=== PATIENT | female | born 1945 | race Caucasian/White ===

== ENCOUNTER → 2023-07-19 11:42 | Outpatient (REF) | payer MEDICARE, OTHER, SELFPAY ==
[2023-07-19 13:03] LABS: HDL Cholesterol 37 mg/dl; LDL Cholesterol, Calculated 44 mg/dl; Total Cholesterol 101 mg/dl (50-199); Triglyceride 100 mg/dl (10-149); Very Low Density Lipoprotein 20 mg/dl (0-30)
== END ==
LOC: OLABN 11:42
PROVIDERS: ATTENDING PHYSICIAN Student in an Organized Health Care Education/Training Program
DX: E78.5 Hyperlipidemia, unspecified (principal)
CPT/HCPCS: 36415; 80061

== ENCOUNTER → 2023-10-30 10:10 | Outpatient (REF) | payer MEDICARE, OTHER, SELFPAY ==
[2023-10-30 12:20] LABS: ALT (SGPT) < 10 U/L (0-35); AST (SGOT) 19 U/L (14-36); Albumin 3.6 g/dl (3.5-5.0); Alkaline Phosphatase 64 U/L (38-126); Blood Urea Nitrogen 22 mg/dl (7-17); Calcium 9.6 mg/dl (8.4-10.2); Carbon Dioxide 26 mmol/L (22-30); Chloride 106 mmol/L (98-107); Glucose 86 mg/dl (70-99); Potassium 5.1 mmol/L (3.5-5.1); Sodium 139 mmol/L (135-145); Total Bilirubin 0.5 mg/dl (0.2-1.3); eGFR > 60.00
[2023-10-30 12:24] LABS: Depakane < 10.0 ug/ml (50.0-120.0)
== END ==
LOC: OLABN 10:10
PROVIDERS: ATTENDING PHYSICIAN Student in an Organized Health Care Education/Training Program
DX: Z51.81 Encounter for therapeutic drug level monitoring (principal)
CPT/HCPCS: 36415; 80053; 80164

== ENCOUNTER → 2024-05-06 12:38 | Outpatient (REF) | payer MEDICARE, OTHER, SELFPAY ==
[2024-05-06 13:59] LABS: Depakane 16.8 ug/ml (50.0-120.0)
== END ==
LOC: OLABN 12:38
PROVIDERS: ATTENDING PHYSICIAN Student in an Organized Health Care Education/Training Program
DX: Z51.81 Encounter for therapeutic drug level monitoring (principal)
CPT/HCPCS: 36415; 80164

== ENCOUNTER → 2024-11-04 10:42 | Outpatient (REF) | payer MEDICARE, OTHER, SELFPAY ==
[2024-11-04 11:52] LABS: Depakane < 10.0 ug/ml (50.0-120.0)
[2024-11-04 11:59] LABS: ALT (SGPT) < 10 U/L (0-35); AST (SGOT) 18 U/L (14-36); Albumin 3.6 g/dl (3.5-5.0); Alkaline Phosphatase 50 U/L (38-126); Blood Urea Nitrogen 14 mg/dl (7-17); Calcium 9.6 mg/dl (8.4-10.2); Carbon Dioxide 24 mmol/L (22-30); Chloride 108 mmol/L (98-107); Glucose 96 mg/dl (70-99); HDL Cholesterol 38 mg/dl; LDL Cholesterol, Calculated 64 mg/dl; Potassium 4.4 mmol/L (3.5-5.1); Sodium 137 mmol/L (135-145); Total Protein 5.8 g/dl (6.3-8.2); Very Low Density Lipoprotein 26 mg/dl (0-30); eGFR > 60.00
== END ==
LOC: OLABN 10:42
PROVIDERS: ATTENDING PHYSICIAN Student in an Organized Health Care Education/Training Program
DX: E78.5 Hyperlipidemia, unspecified (principal); Z51.81 Encounter for therapeutic drug level monitoring
CPT/HCPCS: 36415; 80053; 80061; 80164

== ENCOUNTER 2024-11-08 00:31 | Inpatient (IN) | payer MEDICARE, OTHER, SELFPAY ==
[2024-11-07 21:57] VITALS: BP 114/76
[2024-11-07] MEDS: ZOFRAN 4 MG IV (22:28)
[2024-11-07] MEDS: MORPHINE SULFATE 4 MG IV (22:28)
[2024-11-07 22:34] LABS: Hematocrit 41.9 % (37.0-47.0); Hemoglobin 14.1 g/dL (12.0-16.0); Mean Corp Hgb Conc. 33.7 g/dL (33.0-37.0); Mean Corpuscular Volume 86.9 fL (81.0-99.0); Nucleated Red Blood Cells % 0 %; Platelet Count 212 10^3/uL (130-400); Red Cell Dist. Width 12.9 % (11.5-14.5)
[2024-11-07 22:53] LABS: Blood Urea Nitrogen 19 mg/dl (7-17); Calcium 10.0 mg/dl (8.4-10.2); Carbon Dioxide 24 mmol/L (22-30); Chloride 104 mmol/L (98-107); Estimated Creatinine Clearance 61 ml/min; Glucose 139 mg/dl (70-99); Sodium 135 mmol/L (135-145); eGFR > 60.00
[2024-11-07 23:16] VITALS: BP 100/68
--- NOTE | 2024-11-07 23:37 | ED.MUSCINJ ---
HPI-Injury
General
Chief Complaint: Musculo-Skeletal Complaint
Source: family (daughter)
Exam Limitations: none
Time Seen by Provider: 11/07/24 22:03
Nursing documentation reviewed up to this point in time: agreed with
History of Present Illness-Injury
Is this injury a work related problem?: No
Is pt an associate of [facility]/[place]?: No
Initial Injury comments:
Daughter states patient was left alone in shower area and when staff returned she was found on the floor. Patient with swelling to mid thigh, pain to thigh and knee. Brought to ED via EMS for eval
Past History
Past History
ED Past Medical History: Arrthythmia, HTN and Other (Mild dementia)
ED Past Surgical History: Cholecystectomy, and Orthopedic
Social History
Tobacco: Non-smoker
Personal:
Living: with family
Employment: Retired
Review of Systems
Review of Systems
Allergies reviewed?: Yes
All Other Systems: ROS reviewed and negative except as documented in HPI and ROS
Constitutional: Reports no symptoms
EENT: Reports no symptoms
Respiratory: Reports no symptoms
Cardiac: Reports no symptoms
ABD/GI: Reports no symptoms
: Reports no symptoms
Musculoskeletal: Reports joint pain (pain to left thigh, knee)
Skin: Reports no symptoms
Neurological: Reports no symptoms
Psychiatric: Reports no symptoms
Musculoskeletal Injury Exam
Musculoskeletal Injury Exam
Left Thigh:
Pain with Movement?: Moderate
Tender to palpation?: Moderate
Soft tissue swelling?: Moderate
External deformity and angulation?: None
Joint effusion?: None
Contusion?: Moderate
Hematoma-local bleeding into tissue?: Moderate
Strain- Sprain- Tear (Connective tissue injury)?: Moderate
Crepitus with movement?: No
Joint instability?: No
Malalignment/deformity?: No
Range of motion: Limited
Distal skin color and temperature: normal-warm & good color
Capillary Refill: normal
Normal distal neurovascular exam?: Yes
Peripheral Pulses: posterior tibial (left): 3+ and dorsalis pedis (left): 3+
Left Knee:
Pain with Movement?: Moderate
Tender to palpation?: Moderate
Soft tissue swelling?: Moderate
External deformity and angulation?: None
Joint effusion?: None
Contusion?: Moderate
Hematoma-local bleeding into tissue?: None
Strain- Sprain- Tear (Connective tissue injury)?: Moderate
Crepitus with movement?: No
Joint instability?: No
Malalignment/deformity?: No
Range of motion: Limited
Distal skin color and temperature: normal-warm & good color
Capillary Refill: normal
Normal distal neurovascular exam?: Yes
Phy Exam
General Physical Exam
General Presentation: moderate distress
General age: appears stated age
General Skin: warm and dry
General Habitus: debilitated and elderly
General Mental: confused and usual mental status
General Hydration: appears well hydrated
Pulmonary Exam
Pulmonary Exam: no respiratory distress and chest non tender
Gastrointestinal Exam
Gastrointestinal Exam: non tender and soft
Musculoskeletal Exam
Musculoskeletal Exam: neuro vasc intact
Skin Exam
Skin Exam: normal color, warm/dry and no rash
Psychiatric Exam
Psychiatric Exam: normal mood/affect
Injury Course
Orders/Labs/Results
Orders:
Orders
11/07/24 22:17
Femur, Left 2 View [CR Femur - Left Min 2 Vw] Urgent
Comment:
Reason For Exam: fall
Tib/Fib, Left 2 View [CR Leg Tibia/fibula Left 2 Vw] Urgent
Comment:
Reason For Exam: fall
11/07/24 22:18
CT Head W/o Iv Contrast Urgent
Comment:
Reason For Exam: fall
Morphine Sulfate 4 mg IV NOW STA
Ondansetron Injectable [Zofran] 4 mg IV NOW STA
11/07/24 22:27
Basic Metabolic Panel Urgent
Complete Blood Count/With Diff Urgent
11/07/24 22:37
Urinalysis Reflex To Culture Urgent
11/07/24 23:15
Lactic Acid Urgent
11/07/24 23:30
Knee, Left 4 or More Views [CR Knee - Left 4 Or More View*] Urgent
Comment:
Reason For Exam: trauma
Abnormal Lab Results
11/07/24
22:27
WBC 17.0 H 10^3/uL
(4.8-10.8)
Abs Immat Gran (auto) 0.1 H 10^3/uL
(0-0.05)
Absolute Neuts (auto) 14.7 H 10^3/uL
(1.4-6.5)
Absolute Monos (auto) 0.9 H 10^3/uL
(0.1-0.6)
Neutrophils % 86.4 H %
(42.2-75.2)
Lymphocytes % 7.4 L %
(20.5-51.1)
BUN 19 H mg/dl
(7-17)
Glucose 139 H mg/dl
(70-99)
11/07/24 22:27
11/07/24 22:27
*Pulse Oximetry
SaO2: 93
Nasal Cannula flow liters per minute: 3
Oxygen Mode of Delivery: Room air
Patient hypoxic: no
*Critical Care Note
Total Time (30-74mins, 75-104mins- exclusive of procedures): Not Applicable
Update Note
Update Note:
Patient to ED from [facility]. Unwitnessed fall. Patient with pain and swellng to left thigh Xray confirms left distal femur fx. WIll admit to hospitalist aleksandra. Consult sent to Dr. Pena.
ED Attending Note
-
Portions of this chart may have been created with voice recognition software.� Occasional wrong word or��sound alike� substitutions may have occurred due to the inherent limitations of voice recognition software.
Discharge Plan
Departure
Patient Disposition: Admit
Date of Disposition: 11/07/24
Time of Disposition: 23:46
Presentation/result/management discussed w/ accepting MD/DO: Hospitalist
Patient with high blood pressure during this ER visit?: No
Condition: Fair
Covid-19: Not Applicable
Discharge Problem:
Fracture of distal end of femur
Prescriptions:
No Action
diltiazem HCl 240 MG capsule,extended release 24hr
240 mg PO DAILY
simvastatin 10 MG tablet
10 mg PO QPM
cyanocobalamin (vitamin B-12) 1,000 MCG tablet
1,000 mcg PO DAILY
fosinopril [Monopril] 20 MG tablet
20 mg PO DAILY
aspirin 81 MG tablet,delayed release (DR/EC)
81 mg PO DAILY
pantoprazole 40 MG tablet,delayed release (DR/EC)
40 mg PO DAILY
calcium polycarbophil [Fiber-Tabs] 625 MG tablet
625 mg PO QPM
docusate sodium 100 MG capsule
100 mg PO BID
montelukast 10 MG tablet
10 mg PO DAILY
calcium carbonate-vitamin D3 [Oyster Shell Calcium-Vit D3] 500 MG tablet
1 tab PO BID
glucosamine HCl 1,500 MG tablet
1,500 mg PO BID
rivaroxaban [Xarelto] 20 MG tablet
20 mg PO QPM
multivitamin with folic acid [Tab-A-Tayler] 1 TABLET tablet
1 tab PO DAILY
Referrals:
Byron Silva DO [Family Provider, Family Practice]
Interventions
Interventions:
*Risk Screen - Suicide Last Done: 11/07/24 21:57
*General Assessment Last Done: 11/07/24 21:57
*Neglect/Abuse Screening Last Done: 11/07/24 21:57
*ED- Fall Risk Assessment Last Done: 11/07/24 21:57
*ED COVID-19 Vaccine History Last Done: 11/07/24 21:57
ED-Musculoskeletal Assessment Last Done: 11/07/24 23:21
Discharge Date and Time
Print Language: FAROESE
--- NOTE | 2024-11-07 23:54 | HPS.HSE ---
Family Physician
-
Family Physician: Byron Silva DO
Chief Complaint
-
Fall and injury
History of Present Illness
This is a 79-year-old female with past medical history significant for atrial fibrillation on anticoagulation with Xarelto, hyperlipidemia, and hypertension who presents to the emergency department following unwitnessed fall at home.
According to the daughter, patient was alone in the shower when staff returned to find her on the floor. She was found on the floor with swelling to the mid thigh and pain to the thigh and knee. And brought to the Emergency Department for
evaluation. Patient is nonverbal and cannot provide any history. According to daughter she has never had a syncopal episode. She has dementia and family thought she might of had a stroke in the past but could not confirm.
In the emergency department blood pressure was 100 over 60s with a pulse of 97 and was satting 93% on room air. Temperature was 98.2.
She had white count of 17 but otherwise CBC was unremarkable. Electrolytes were stable with potassium pending. Pain and creatinine were 19 and 0.7 with a glucose of 139.
X-ray shows a left distal femur fracture. CT head with no acute intracranial abnormality noted. No acute intracranial hemorrhage. No extra-axial collection.
Medical History
Past Medical History
Past Medical History: Reports Arrhythmia (Atrial fibrillation) and HTN
Past Surgical History: Reports Cholecystectomy, and Orthopedic (Left total knee arthroplasty)
Social History
Tobacco: Non-smoker
Alcohol: None
Drug: None
Living: Assisted Living
Family History
Family History: Not pertinent
Allergies / Home Medications
Allergies reflects when Allergies were last updated in [employer].
Home Medications with original date entered in [employer]
Allergy/Medication List:
Allergies
Allergy/AdvReac Type Severity Reaction Status Date / Time
Penicillins Allergy Unknown Verified 11/07/24 21:56
Home Medications
Lisinopril 20 MG Oral for 30 Days Active
Montelukast Sodium 10 MG Oral for 30 Days Active
Gabapentin 100 MG Oral for 30 Days Active
dilTIAZem HCl ER Coated Beads 240 MG Oral for 30 Days Active
Bacitracin 500 UNIT/GM Ophthalmic for 7 Days Active
LORazepam 0.5 MG Oral for 14 Days Active
Xarelto 20 MG Oral for 14 Days Active
Simvastatin 10 MG Oral for 30 Days Active
Sertraline HCl 100 MG Oral for 30 Days Active
Review of Systems
-
Unable to obtain full review of systems at this time due to: Patient Non-verbal
Physical Exam
Vital Signs
Vital Signs
Temp Pulse Resp BP Pulse Ox
98.2 F 97 18 100/68 93
11/07/24 23:16 11/07/24 23:16 11/07/24 23:16 11/07/24 23:16 11/07/24 23:38
Physical Exam
General: Well Developed and Pain
HEENT: NormoCephalic, Moist mucous membranes, Atraumatic and Oxygen
Respiratory: Clear
Cardiac: S1/S2 and Regular Rhythm; No Murmur or Rub
GI: Soft, Non Tender, Non Distended and Normal Bowel Sounds; No Organomegaly
Rectal: Deferred by Provider
Musculoskeletal: No Clubbing, No Cyanosis and No Edema
Skin: No Rash
Neuro: Awake and Nonfocal/grossly intact; No Facial Droop
Laboratory Results
-
11/07/24 22:27
11/07/24 22:27
Laboratory Results
Lactic Acid 2.0 mmol/L (0.7-2.0) 11/07/24 23:15
Total Bilirubin Cancelled 11/07/24 22:27
AST Cancelled 11/07/24 22:27
ALT Cancelled 11/07/24 22:27
Alkaline Phosphatase Cancelled 11/07/24 22:27
Data Reviewed
-
Diagnostic Radiology: Image Personally Visualized and interpreted
CT Scan: Report Reviewed by me
Lab Data: Labs Reviewed by me
Old Records: Reviewed
Impression/Plan
-
IMPRESSION:
This is a 79-year-old female with past medical history of dementia, atrial fibrillation on Xarelto, hypertension, she is not mobile and nonverbal at baseline presents to the emergency department after suffering a fall at the alf. She
apparently was seated on shower chair and left for a few minutes when staff returned and found her on the floor wincing in pain. She was really brought to the emergency department. She had no weakness loss of consciousness. In the ED found to
have a left distal femur fracture. 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 Labs notable for leukocytosis to 17 otherwise unremarkable. She is on 2 L of oxygen which she does not use at baseline.
PLAN:
Distal Femur fracture -closed, minimally displaced distal femur fracture.
-Admit to MedSurg
-Hold anticoagulation
-Pain control
-Antiemetic
-Fracture protocol
-Orthopedic consulted, awaiting response
DVT prophylaxis with SCDs for now
Leukocytosis -unclear etiology for leukocytosis and patient cannot provide any significant history
-Obtain chest x-ray
-Obtain UA
-Blood cultures afebrile
-Hold antibiotics for now
-Supplemental oxygen
Atrial fibrillation -chronic A-fib, with no history of syncope in the past and no witnessed syncopal episode
-Check ecg
- Continue diltiazem to 40
-Hold Xarelto (last dose 11/07)
CODE STATUS�DNR
[2024-11-08] MEDS: MORPHINE SULFATE 2 MG IV ×2 (01:15→05:21)
--- NOTE | 2024-11-08 02:00 | PTCARENOTE ---
Pt admitted to [facility] from ED and pulled over to bed. Pt opens eyes but is nonverbal. Oriented to environment, Samuel alarm on. Call samuel within reach.
[2024-11-08 02:16] VITALS: BP 145/79
[2024-11-08 02:18] VITALS: BMI 37.8
[2024-11-08 02:23] VITALS: BMI 37.8
[2024-11-08] MEDS: TYLENOL PO ×3 (05:31→21:47)
[2024-11-08 07:08] VITALS: BP 114/70
[2024-11-08] MEDS: ZOLOFT 100 MG PO (07:54)
[2024-11-08] MEDS: SINGULAIR 10 MG PO (07:54)
[2024-11-08] MEDS: PROTONIX 40 MG PO (07:54)
[2024-11-08] MEDS: CARDIZEM CD 240 MG PO (07:55)
[2024-11-08] MEDS: TYLENOL 650 MG PO (07:55)
[2024-11-08] MEDS: ZESTRIL 20 MG PO (07:58)
--- NOTE | 2024-11-08 10:30 | PTCARENOTE ---
Care assumed of patient after report received from Edith EL.
[2024-11-08 11:39] LABS: Urine Character Slightly Cloudy (Clear)
[2024-11-08 11:47] LABS: Urine Red Blood Cell 0-2 /HPF (0-2)
--- NOTE | 2024-11-08 14:55 | W.PN.UPDATE ---
Update Note
Progress Note Update
79-year-old female with a history of advanced dementia presented overnight with left periprosthetic distal femur fracture after a fall. She had right and left knee replacements with the [facility]. Recommendation was made to discuss with
the [facility] orthopedic service at [facility] about treatment options. I did evaluate the patient at bedside at the request of the medical team. The patient was sleeping and unarousable but otherwise comfortable appearing. According to
her family, she is nonverbal at baseline as well as nonambulatory. She resides at [facility]. I discussed with her family treatment options for distal femur fractures including nonoperative and operative treatments. Operative treatments may
include open reduction and internal fixation versus distal femoral replacement. These are quite invasive and present surgical risks without guarantee of successful outcome. Given her advanced dementia and nonambulatory status, my recommendation to
the family on the telephone was for nonsurgical treatment and immobilization in a knee immobilizer. I recommended that generally follow-up x-rays may be performed in 2 weeks and in periodic intervals thereafter to assess the progress of her
fracture healing and for interval displacement. I advised nonweight bearing in the knee immobilizer. She may follow up with her index surgery team to evaluate her progress.
--- NOTE | 2024-11-08 15:14 | W.PN.HOSP.TC ---
Today's Communication/Plan
-
resume xarelto
ceftriaxone
f/u cultures
Assessment / Plan
Assessment / Plan
Physical Exam
General: Well Developed and Pain
HEENT: NormoCephalic, Moist mucous membranes, Atraumatic and Oxygen
Respiratory: Clear
Cardiac: S1/S2 and Regular Rhythm; No Murmur or Rub
GI: Soft, Non Tender, Non Distended and Normal Bowel Sounds; No Organomegaly
Rectal: Deferred by Provider
Musculoskeletal: No Clubbing, No Cyanosis and No Edema
Skin: No Rash
Neuro: Awake and Nonfocal/grossly intact; No Facial Droop; non verbal
This is a 79-year-old female with past medical history of dementia, atrial fibrillation on Xarelto, hypertension, she is not mobile and nonverbal at baseline presents to the emergency department after [facility] a [facility]. She
apparently was seated on shower chair and left for a few minutes when staff returned and found her on the floor wincing in pain. She was really brought to the emergency department. She had no weakness loss of consciousness. In the ED found to
have a left distal femur fracture. 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 Labs notable for leukocytosis to 17 otherwise unremarkable. She is on 2 L of oxygen which she does not use at baseline.
PLAN:
Distal Femur fracture -closed, minimally displaced distal femur fracture.
-Admit to MedSurg
-Ortho discussed with patients family - medical management; no plans for surgery
- Hold anticoagulation
-Pain control
-Antiemetic
-Fracture protocol
Leukocytosis -
-possibly reactive w/ fall v ?uti
-start abx
-Trend
#?UTI
-Empiric abx
f/u cultures
Atrial fibrillation -chronic A-fib, with no history of syncope in the past and no witnessed syncopal episode
- Continue diltiazem to 40
-Xarelto
CODE STATUS�DNR
Anticipated Discharge: 24 - 48 hours
Subjective/Interval History
-
Date of Service: November 08, 2024
No acute events, Ortho deciding on not going for procedure
Objective Data
-
Vital Signs:
Vital Signs
Temp Pulse Resp BP Pulse Ox
98.3 F 105 24 114/70 96
11/08/24 07:08 11/08/24 07:55 11/08/24 07:08 11/08/24 07:55 11/08/24 07:08
Review of Systems
-
History Source: Patient
All other systems: Not reviewed unless documented
Data Reviewed
-
Diagnostic Radiology: Report Reviewed by me
CT Scan: Report Reviewed by me
Labs: Labs Reviewed by me
[2024-11-08 15:25] VITALS: BP 103/62
[2024-11-08] MEDS: ROCEPHIN 1000 MG IV (16:51)
[2024-11-08] MEDS: FLUSH (NSS) 2 FLUSH IV (17:02)
[2024-11-08] MEDS: STERILE WATER FOR INJECTION 10 ML IV (17:04)
[2024-11-08] MEDS: XARELTO PO (17:43)
[2024-11-08] MEDS: LIPITOR PO (17:43)
[2024-11-08] MEDS: ATIVAN PO (21:46)
[2024-11-08] MEDS: NEURONTIN PO (21:46)
[2024-11-08] MEDS: COLACE PO (21:46)
[2024-11-08] MEDS: SENOKOT PO (21:46)
[2024-11-08 23:30] VITALS: BP 98/68
[2024-11-09] MEDS: MORPHINE SULFATE 2 MG IV (02:33)
[2024-11-09] MEDS: FLUSH (NSS) 1 FLUSH IV (02:34)
[2024-11-09 07:36] VITALS: BP 101/69
[2024-11-09 08:21] LABS: Hematocrit 33.1 % (37.0-47.0); Hemoglobin 11.0 g/dL (12.0-16.0); Mean Corp Hgb Conc. 33.2 g/dL (33.0-37.0); Mean Corpuscular Volume 89.0 fL (81.0-99.0); Platelet Count 142 10^3/uL (130-400); Red Cell Dist. Width 13.2 % (11.5-14.5)
[2024-11-09 08:27] LABS: ALT (SGPT) 12 U/L (0-35); AST (SGOT) 20 U/L (14-36); Albumin 3.4 g/dl (3.5-5.0); Alkaline Phosphatase 50 U/L (38-126); Blood Urea Nitrogen 25 mg/dl (7-17); Calcium 9.3 mg/dl (8.4-10.2); Carbon Dioxide 24 mmol/L (22-30); Chloride 106 mmol/L (98-107); Estimated Creatinine Clearance 62 ml/min; Glucose 118 mg/dl (70-99); Potassium 5.0 mmol/L (3.5-5.1); Sodium 135 mmol/L (135-145); Total Protein 5.7 g/dl (6.3-8.2); eGFR > 60.00
[2024-11-09] MEDS: NEURONTIN 100 MG PO ×2 (09:22→21:33)
[2024-11-09] MEDS: COLACE 100 MG PO ×2 (09:22→21:32)
[2024-11-09] MEDS: SENOKOT 17.2 MG PO ×2 (09:22→21:33)
[2024-11-09] MEDS: ZOLOFT 100 MG PO (09:22)
[2024-11-09] MEDS: SINGULAIR 10 MG PO (09:22)
[2024-11-09] MEDS: PROTONIX 40 MG PO (09:22)
[2024-11-09] MEDS: TYLENOL 1000 MG PO ×2 (09:22→21:33)
[2024-11-09] MEDS: ATIVAN 0.5 MG PO ×2 (09:22→21:32)
[2024-11-09] MEDS: ZESTRIL 20 MG PO (09:30)
[2024-11-09] MEDS: CARDIZEM CD 240 MG PO (09:30)
--- NOTE | 2024-11-09 13:21 | W.PN.HOSP.TC ---
Today's Communication/Plan
-
monitor hgb
Assessment / Plan
Assessment / Plan
Physical Exam
General: Well Developed and Pain
HEENT: NormoCephalic, Moist mucous membranes, Atraumatic and Oxygen
Respiratory: Clear
Cardiac: S1/S2 and Regular Rhythm; No Murmur or Rub
GI: Soft, Non Tender, Non Distended and Normal Bowel Sounds; No Organomegaly
Rectal: Deferred by Provider
Musculoskeletal: No Clubbing, No Cyanosis and No Edema
Skin: No Rash
Neuro: Awake and Nonfocal/grossly intact; No Facial Droop; non verbal
This is a 79-year-old female with past medical history of dementia, atrial fibrillation on Xarelto, hypertension, she is not mobile and nonverbal at baseline presents to the emergency department after suffering a fall at the group home. She
apparently was seated on shower chair and left for a few minutes when staff returned and found her on the floor wincing in pain. She was really brought to the emergency department. She had no weakness loss of consciousness. In the ED found to
have a left distal femur fracture. 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 Labs notable for leukocytosis to 17 otherwise unremarkable. She is on 2 L of oxygen which she does not use at baseline.
PLAN:
Distal Femur fracture -closed, minimally displaced distal femur fracture.
-Admit to MedSurg
-Ortho discussed with patients family - medical management; no plans for surgery
- resume anticoag
-Pain control
-Antiemetic
-Fracture protocol
Leukocytosis -
-possibly reactive
-trending down
-Trend
Anemia
-Unclear if acute blood loss v hemodiluation
-no obvious source at this time
-monitor cbc
-if further drop in hgb, stop anticoag
Atrial fibrillation -chronic A-fib, with no history of syncope in the past and no witnessed syncopal episode
- Continue diltiazem to 40
-Xarelto
CODE STATUS�DNR
Anticipated Discharge: Within 24 hours
Subjective/Interval History
-
Date of Service: November 09, 2024
No acute events overnight
Objective Data
-
Labs:
Laboratory Results
11/09/24
06:45
WBC 12.0 H
Hgb 11.0 L D
Hct 33.1 L
Plt Count 142 D
Sodium 135
Potassium 5.0
Chloride 106
Carbon Dioxide 24
BUN 25 H
Creatinine 0.7
Glucose 118 H
Calcium 9.3
Total Bilirubin 1.0
AST 20
ALT 12
Alkaline Phosphatase 50
Vital Signs:
Vital Signs
Temp Pulse Resp BP Pulse Ox
97.9 F 101 19 104/66 96
11/09/24 07:36 11/09/24 09:30 11/09/24 07:36 11/09/24 09:30 11/09/24 07:36
I&O
11/08/24 11/09/24 11/10/24
06:59 06:59 06:59
Output Total 200 / 200
Balance -200 / -200
Review of Systems
-
History Source: Patient
All other systems: Not reviewed unless documented
Data Reviewed
-
Diagnostic Radiology: Report Reviewed by me
CT Scan: Report Reviewed by me
Labs: Labs Reviewed by me
[2024-11-09 16:03] VITALS: BP 103/71
[2024-11-09] MEDS: XARELTO 20 MG PO (17:45)
[2024-11-09] MEDS: LIPITOR 10 MG PO (17:45)
[2024-11-09 23:39] VITALS: BP 87/46
[2024-11-10 08:10] VITALS: BP 105/75
--- NOTE | 2024-11-10 09:20 | CM ---
Addendum entered by Amita Cabezas 11/10/24 12:24:
home manager spoke with [employer] supervisor and he is aware that patient to return to [facility] today.
[facility]
Report [phone]

Original Note:
home manager reviewed patient's chart and met with patient and spoke with patient's daughter, Kaia by phone. Patient has a history of dementia. 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 Per
patient's daughter plan is for patient to return to [facility] when stable. Referral sent to [facility] in [facility].
Per nursing at [facility] patient is nonambulatory total care, mechanical lift to w/c.
PCP: Byron Silva
Pharmacy; [facility]
Report [phone]
[2024-11-10 09:57] LABS: Hematocrit 32.7 % (37.0-47.0); Hemoglobin 10.8 g/dL (12.0-16.0); Mean Corp Hgb Conc. 33.0 g/dL (33.0-37.0); Mean Corpuscular Volume 89.6 fL (81.0-99.0); Platelet Count 123 10^3/uL (130-400); Red Cell Dist. Width 13.1 % (11.5-14.5)
[2024-11-10 10:26] LABS: ALT (SGPT) < 10 U/L (0-35); AST (SGOT) 17 U/L (14-36); Albumin 3.3 g/dl (3.5-5.0); Alkaline Phosphatase 50 U/L (38-126); Blood Urea Nitrogen 26 mg/dl (7-17); Calcium 9.1 mg/dl (8.4-10.2); Carbon Dioxide 26 mmol/L (22-30); Chloride 106 mmol/L (98-107); Estimated Creatinine Clearance 62 ml/min; Glucose 121 mg/dl (70-99); Potassium 4.6 mmol/L (3.5-5.1); Sodium 137 mmol/L (135-145); Total Protein 5.5 g/dl (6.3-8.2); eGFR > 60.00
[2024-11-10] MEDS: ATIVAN 0.5 MG PO (11:09)
[2024-11-10] MEDS: CARDIZEM CD 240 MG PO (11:13)
[2024-11-10] MEDS: COLACE PO (11:17)
[2024-11-10] MEDS: SENOKOT PO (11:17)
[2024-11-10] MEDS: PROTONIX PO (11:17)
[2024-11-10] MEDS: TYLENOL PO (11:17)
[2024-11-10] MEDS: ZESTRIL PO (11:17)
[2024-11-10] MEDS: SINGULAIR PO (11:17)
[2024-11-10] MEDS: NEURONTIN PO (11:17)
[2024-11-10] MEDS: ZOLOFT PO (11:18)
--- NOTE | 2024-11-10 11:39 | W.PN.HOSP.TC ---
Addendum entered and electronically signed by Min Michelle MD 11/10/24 15:56:
[id number]
Original Note:
Today's Communication/Plan
-
monitor hgb outpatient
immobilization in a knee immobilizer.
follow-up x-rays may be performed in 2 weeks and in periodic intervals thereafter to assess the progress of her fracture healing and for interval displacement.
nonweight bearing in the knee immobilizer.
Follow up orthopedics outpatient
F/u PCP within 1 week
Assessment / Plan
Assessment / Plan
Physical Exam
General: Well Developed and Pain
HEENT: NormoCephalic, Moist mucous membranes, Atraumatic and Oxygen
Respiratory: Clear
Cardiac: S1/S2 and Regular Rhythm; No Murmur or Rub
GI: Soft, Non Tender, Non Distended and Normal Bowel Sounds; No Organomegaly
Rectal: Deferred by Provider
Musculoskeletal: No Clubbing, No Cyanosis and No Edema
Skin: No Rash
Neuro: Awake and Nonfocal/grossly intact; No Facial Droop; non verbal
This is a 79-year-old female with past medical history of dementia, atrial fibrillation on Xarelto, hypertension, she is not mobile and nonverbal at baseline presents to the emergency department after suffering a fall at the shelter. She
apparently was seated on shower chair and left for a few minutes when staff returned and found her on the floor wincing in pain. She was really brought to the emergency department. She had no weakness loss of consciousness. In the ED found to
have a left distal femur fracture. 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 Labs notable for leukocytosis to 17 otherwise unremarkable. She is on 2 L of oxygen which she does not use at baseline.
PLAN:
Distal Femur fracture -closed, minimally displaced distal femur fracture.
-Admit to MedSurg
-Ortho discussed with patients family - medical management; no plans for surgery
- resume anticoag
-Pain control
-Antiemetic
-immobilization in a knee immobilizer.
follow-up x-rays may be performed in 2 weeks and in periodic intervals thereafter to assess the progress of her fracture healing and for interval displacement.
nonweight bearing in the knee immobilizer.
Follow up orthopedics outpatient
Leukocytosis -
-most likely reactive
-trending down
-f?u outpatient
Anemia
-no obvious blood loss
-Monitor cbc
-hemodynamically stable
-stable from yesterday
Atrial fibrillation -chronic A-fib, with no history of syncope in the past and no witnessed syncopal episode
- Continue diltiazem to 40
-Xarelto
CODE STATUS�DNR
More than 30 minutes spent in discharge including
Final examination of the patient
Summarizing hospital stay
Instructions for continuing care to all relevant caregivers
Preparation of discharge records, prescriptions, and referral forms
Total time spent (in minutes): 36
Anticipated Discharge: Today
Subjective/Interval History
-
Date of Service: November 10, 2024
No acute events
Objective Data
-
Labs:
Laboratory Results
11/10/24
09:19
WBC 10.2
Hgb 10.8 L
Hct 32.7 L
Plt Count 123 L
Sodium 137
Potassium 4.6
Chloride 106
Carbon Dioxide 26
BUN 26 H
Creatinine 0.7
Glucose 121 H
Calcium 9.1
Total Bilirubin 0.9
AST 17
ALT < 10
Alkaline Phosphatase 50
Vital Signs:
Vital Signs
Temp Pulse Resp BP Pulse Ox
98.9 F 93 18 102/68 98
11/10/24 08:10 11/10/24 11:13 11/10/24 08:10 11/10/24 11:13 11/10/24 08:10
I&O
11/09/24 11/10/24 11/11/24
06:59 06:59 06:59
Intake Total 120 / 120
Output Total 200 / 200 400 / 400
Balance -200 / -200 -280 / -280
Review of Systems
-
History Source: Patient
All other systems: Not reviewed unless documented
Data Reviewed
-
Diagnostic Radiology: Report Reviewed by me
CT Scan: Report Reviewed by me
Labs: Labs Reviewed by me
--- NOTE | 2024-11-10 11:42 | W.DS.TRANS ---
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
-
Discharge Instructions:
Discharge Diagnosis/Procedures Distal Femur fracture -closed, minimally
displaced distal femur fracture.
Anemia
Diet Low Cholesterol,Low Fat,Other diet
Additional Diets Pureed - IDDSI 4
Blood Work cbc and bmp in 3 -5 days - monitoring Hgb
Instructions:
Stand-Alone Forms:
Changes to Home Medications: No
Discharge Medications:
DC Medications w/original date entered in [employer]
diltiazem HCl 240 mg capsule,extended release 24 hr 240 mg PO DAILY Heart Disease/Condition 05/25/18
rivaroxaban 20 mg tablet (Xarelto) 20 mg PO QPM Blood Clot Prevention/Tx 05/25/18
simvastatin 10 mg tablet 10 mg PO QPM High Cholesterol 05/25/18
acetaminophen 325 mg tablet (Tylenol) 650 mg PO DAILYPRN PRN MILD PAIN 11/08/24
acetaminophen 500 mg tablet (Tylenol Extra Strength) 1,000 mg PO BID Pain 11/08/24
bisacodyl 10 mg rectal suppository (Dulcolax (bisacodyl)) 10 mg MT [id number] PRN IF NO BM AFTR MOM 11/08/24
cholecalciferol (vitamin D3) 125 mcg (5,000 unit) tablet (Vitamin D3) 375 mcg PO MONTHLY Supplement 11/08/24
gabapentin 100 mg capsule 100 mg PO BID 11/08/24
lisinopril 20 mg tablet 20 mg PO DAILY Blood Pressure 11/08/24
lorazepam 0.5 mg tablet 0.5 mg PO BID 11/08/24
magnesium hydroxide 400 mg/5 mL oral suspension (Milk of Magnesia) 2,400 mg PO HSPRN PRN CONSTIPATION 11/08/24
sennosides 8.6 mg-docusate sodium 50 mg tablet (Senna-S) 2 tab-cap PO DAILY Constipation 11/08/24
sertraline 100 mg tablet 100 mg PO DAILY Mental Health/Anxiety 11/08/24
montelukast 10 mg tablet 10 mg PO DAILY #0 tabs 11/10/24
pantoprazole 40 mg tablet,delayed release 40 mg PO DAILY #0 tabs 11/10/24
Home Medication Changes
na
Pending Results: Yes
[2024-11-10 15:21] VITALS: BP 112/60
--- NOTE | 2024-11-10 15:50 | CHAP ---
Maria Teresa was resting, minimally responsive, with her son at her side. He welcomed prayer for her. Emotional and spiritual support provided.
== END 2024-11-10 16:09 | DRG 534 ==
LOC: 4 WEST ACU 00:31
PROVIDERS: Nurse Practitioner; ADMITTING PHYSICIAN Internal Medicine; ATTENDING PHYSICIAN Internal Medicine; EMERGENCY PHYSICIAN Emergency Medicine; FAMILY PHYSICIAN Student in an Organized Health Care Education/Training Program
DX: S72.402A Unspecified fracture of lower end of left femur, initial encounter for closed fracture (principal); W19.XXXA Unspecified fall, initial encounter; D72.829 Elevated white blood cell count, unspecified; D64.9 Anemia, unspecified; Z79.01 Long term (current) use of anticoagulants; E78.5 Hyperlipidemia, unspecified; I10 Essential (primary) hypertension; F03.A0 Unspecified dementia, mild, without behavioral disturbance, psychotic disturbance, mood disturbance, and anxiety; Z90.49 Acquired absence of other specified parts of digestive tract; Z96.652 Presence of left artificial knee joint; I48.91 Unspecified atrial fibrillation; Z96.642 Presence of left artificial hip joint
CPT/HCPCS: 29505; 70450; 71045; 73552; 73564; 73590; 80048; 80053; 81003; 81015; 83605; 85025; 85027; 87070; 87086; 93005; 96374; 96375; 99285

== ENCOUNTER → 2024-11-11 10:10 | Outpatient (REF) | payer MEDICARE, OTHER, SELFPAY ==
[2024-11-11 12:16] LABS: Urine Character Cloudy (Clear)
[2024-11-11 12:17] LABS: Hematocrit 30.4 % (37.0-47.0); Hemoglobin 9.9 g/dL (12.0-16.0); Mean Corp Hgb Conc. 32.6 g/dL (33.0-37.0); Mean Corpuscular Volume 88.6 fL (81.0-99.0); Platelet Count 135 10^3/uL (130-400); Red Cell Dist. Width 13.0 % (11.5-14.5)
[2024-11-11 12:25] LABS: Urine Red Blood Cell 0-2 /HPF (0-2); Urine Squamous Cell >30 /LPF (Few)
[2024-11-11 12:31] LABS: Blood Urea Nitrogen 25 mg/dl (7-17); Calcium 9.1 mg/dl (8.4-10.2); Carbon Dioxide 25 mmol/L (22-30); Chloride 104 mmol/L (98-107); Glucose 114 mg/dl (70-99); Potassium 4.2 mmol/L (3.5-5.1); Sodium 135 mmol/L (135-145); eGFR > 60.00
== END ==
LOC: OLABN 10:10
PROVIDERS: ATTENDING PHYSICIAN Student in an Organized Health Care Education/Training Program
DX: R50.9 Fever, unspecified (principal); D64.9 Anemia, unspecified
CPT/HCPCS: 36415; 80048; 81003; 81015; 85027; 87086

== ENCOUNTER → 2025-03-01 18:45 | Outpatient (REF) | payer MEDICARE, OTHER, SELFPAY ==
[2025-03-02 08:52] LABS: Hematocrit 42.5 % (37.0-47.0); Hemoglobin 13.7 g/dL (12.0-16.0); Mean Corp Hgb Conc. 32.2 g/dL (33.0-37.0); Mean Corpuscular Volume 84.3 fL (81.0-99.0); Platelet Count 218 10^3/uL (130-400); Red Cell Dist. Width 14.1 % (11.5-14.5)
[2025-03-02 09:04] LABS: Blood Urea Nitrogen 13 mg/dl (7-17); Calcium 10.0 mg/dl (8.4-10.2); Carbon Dioxide 29 mmol/L (22-30); Chloride 103 mmol/L (98-107); Glucose 98 mg/dl (70-99); Potassium 4.6 mmol/L (3.5-5.1); Sodium 135 mmol/L (135-145); eGFR > 60.00
== END ==
LOC: OLABN 18:45
PROVIDERS: ATTENDING PHYSICIAN Student in an Organized Health Care Education/Training Program
DX: I10 Essential (primary) hypertension (principal); R53.1 Weakness
CPT/HCPCS: 80048; 85027

== ENCOUNTER → 2025-03-02 07:50 | Outpatient (REF) | payer MEDICARE, OTHER, SELFPAY ==
[2025-03-02 09:14] LABS: Urine Character Slightly Cloudy (Clear)
[2025-03-02 09:41] LABS: Urine Red Blood Cell 0-2 /HPF (0-2)
== END ==
LOC: OLABN 07:50
PROVIDERS: ATTENDING PHYSICIAN Student in an Organized Health Care Education/Training Program
DX: R82.90 Unspecified abnormal findings in urine (principal)
CPT/HCPCS: 81003; 81015; 87077; 87086